=== PATIENT | female | born 1960 | race Hispanic/Latino ===

== ENCOUNTER 2020-05-29 10:07 | Emergency (ER) | payer MEDICARE ==
--- NOTE | 2020-05-29 10:39 | Emergency Department Report ---
ED General Adult HPI - General Chief complaint: Weakness Stated complaint: NOT FEELING GOOD PUI?: No Time Seen by Provider: 05/29/20 10:19 Source: patient, EMS ( EMS documentation not available at time of chart dictation ), RN notes reviewed, old records reviewed Mode of arrival: Stretcher Limitations: Other (Patient is a poor historian and disorganized) - History of Present Illness Initial comments: The patient was evaluated in the emergency department for symptoms described in the history of present illness. He/she was evaluated in the context of the global COVID-19 pandemic, which necessitated consideration that the patient might be at risk for infection with the virus that causes COVID-19. Institutional protocols and algorithms that pertain to the evaluation of patients at risk for COVID-19 are in a state of rapid change based on information released by regulatory bodies including the CDC and federal and state organizations. These policies and algorithms were followed during the patient's care in the emergency department. Please note that these policies, procedures and recommendations changed on a rapid basis. Patient is a 59-year-old female who is reportedly homeless, has a history of psychiatric disease, who was brought to the hospital by emergency medical services. Apparently, the patient was seen standing and/or wandering around a local gas station, And emergency medical services were called for unclear reasons. The patient herself has a complaint of "I do not feel well." She complains of chronic plantar foot pain. She denies headache, neck pain, chest pain, abdominal pain. She is chronic shortness of breath. She is not sure if she is having dysuria. She is not homicidal or suicidal. Patient states that she lives with her mother. She also reports that her mother is her "doctor." She reports I do not know what kind of medicine she practices." Patient is not accompanied by friends or family at this time for additional information or collateral information. Apparently, during her recent hospitalization, patient was transferred to the fifth floor geriatric psychiatry unit after being medically optimized. Patient is not sure what medications she is taking. Patient has difficulty describing the qualitative nature of her symptoms, exacerbating factors, relieving factors, or radiation factors. -: unknown Radiation: other Quality: other Consistency: other Improves with: other Worsens with: other Associated Symptoms: other - Related Data Home Medications Medication Instructions Recorded Confirmed Last Taken Folic Acid [Folvite] 1 mg PO QDAY 05/10/20 05/10/20 Unknown Melatonin [Melatonin 5MG TAB] 5 mg PO HS 05/10/20 05/10/20 Unknown Memantine 5 mg PO QDAY 05/10/20 05/10/20 Unknown Trazodone HCl 50 mg PO HS 05/10/20 05/10/20 Unknown buPROPion XL [Wellbutrin XL] 150 mg PO DAILY 05/10/20 05/10/20 Unknown propranoloL [Inderal] 5 mg PO Q8HR 05/10/20 05/10/20 Unknown Previous Rx's Medication Instructions Recorded Last Taken Type Benztropine [Cogentin] 0.5 mg PO BID #60 tablet 05/17/20 Unknown Rx Melatonin [Melatonin 5MG TAB] 5 mg PO QHS PRN #30 tablet 05/17/20 Unknown Rx Nicotine [Habitrol] 21 mg TD QDAY #30 patch 05/17/20 Unknown Rx OLANzapine [Zyprexa] 20 mg PO QHS #60 tablet 05/17/[address] [[place]] 500 mg PO BID #60 tablet 05/24/20 Unknown Rx Albuterol Sulfate [Proair 90 mcg IH Q4HR PRN #2 aer.[email or web address] 05/29/20 Unknown Rx Respiclick] Nitrofurantoin [place]/M-Cryst 100 mg PO Q12HR #13 capsule 05/29/20 Unknown Rx [Macrobid CAP] Allergies Allergy/AdvReac Type Severity Reaction Status Date / Time No Known Allergies Allergy Verified 05/29/20 10:29 ED Review of Systems ROS: Stated complaint: NOT FEELING GOOD Other details as noted in HPI Constitutional: malaise, weakness. denies: fever Eyes: denies: eye discharge ENT: congestion Respiratory: cough, shortness of breath Cardiovascular: denies: chest pain Gastrointestinal: abdominal pain Musculoskeletal: myalgia Neurological: weakness, confusion Psychiatric: denies: homicidal thoughts, suicidal thoughts ED Past Medical Hx - Past Medical History Hx Hypertension: Yes Hx Congestive Heart Failure: No Hx Diabetes: No Hx Renal Disease: No Hx Arthritis: No Hx Seizures: Yes ("spells" per pt) Hx Psychiatric Treatment: Yes (schizophrenia) Hx Asthma: No Hx COPD: Yes Hx Dementia: No (patient complains of poor memory) - Surgical History Hx Cholecystectomy: No Hx Appendectomy: No - Social History Smoking Status: Current Every Day Smoker Substance Use Type: None - Medications Home Medications: Home Medications Medication Instructions Recorded Confirmed Last Taken Type Folic Acid [Folvite] 1 mg PO QDAY 05/10/20 05/10/20 Unknown History Melatonin [Melatonin 5MG TAB] 5 mg PO HS 05/10/20 05/10/20 Unknown History Memantine 5 mg PO QDAY 05/10/20 05/10/20 Unknown History Trazodone HCl 50 mg PO HS 05/10/20 05/10/20 Unknown History buPROPion XL [Wellbutrin XL] 150 mg PO DAILY 05/10/20 05/10/20 Unknown History propranoloL [Inderal] 5 mg PO Q8HR 05/10/20 05/10/20 Unknown History Benztropine [Cogentin] 0.5 mg PO BID #60 tablet 05/17/20 Unknown Rx Melatonin [Melatonin 5MG TAB] 5 mg PO QHS PRN #30 tablet 05/17/20 Unknown Rx Nicotine [Habitrol] 21 mg TD QDAY #30 patch 05/17/20 Unknown Rx OLANzapine [Zyprexa] 20 mg PO QHS #60 tablet 05/17/[address] [Depakote Dr] 500 mg PO BID #60 tablet 05/24/20 Unknown Rx Albuterol Sulfate [Proair 90 mcg IH Q4HR PRN #2 aer.[email or web address] 05/29/20 Unknown Rx Respiclick] Nitrofurantoin [place]/M-Cryst 100 mg PO Q12HR #13 capsule 05/29/20 Unknown Rx [Macrobid CAP] ED Physical Exam - General Limitations: Other (Patient is disorganized and a poor historian) General appearance: alert, in no apparent distress - Head Head exam: Present: atraumatic, normocephalic - Eye Eye exam: Present: normal appearance, EOMI, other (Visual acuity intact to finger counting and color perception at a close distance). Absent: nystagmus - ENT ENT exam: Present: normal exam, normal orophraynx, mucous membranes moist, normal external ear exam - Neck Neck exam: Present: normal inspection, full ROM. Absent: tenderness, meningismus - Respiratory Respiratory exam: Present: normal lung sounds bilaterally. Absent: respiratory distress, wheezes, rales, rhonchi, stridor, chest wall tenderness - Cardiovascular Cardiovascular Exam: Present: normal rhythm, tachycardia, normal heart sounds. Absent: systolic murmur, diastolic murmur, rubs, gallop - GI/Abdominal GI/Abdominal exam: Present: soft. Absent: distended, tenderness, guarding, rebound, rigid, pulsatile mass - Extremities Exam Extremities exam: Present: normal inspection, full ROM, pedal edema (1+ edema in the bilateral lower extremity), other (2+ pulses noted in the bilateral upper and lower extremities. There is no palpable cord. negative Homans sign. Muscular compartments are soft. The pelvis is stable.). Absent: calf tenderness - Back Exam Back exam: Present: normal inspection, full ROM. Absent: tenderness, CVA tenderness (R), CVA tenderness (L), paraspinal tenderness, vertebral tenderness - Neurological Exam Neurological exam: Present: alert, other (No facial droop. Tongue midline. Extraocular movements intact bilaterally. Facial sensation intact to light touch in V1, V2, V3 distribution bilaterally. 5 and a 5 strength in 4 extremities. Sensation intact to light touch in 4 extremities.) - Psychiatric Psychiatric exam: Present: flat affect. Absent: homicidal ideation, suicidal ideation - Skin Skin exam: Present: warm, dry, intact, normal color. Absent: rash ED Course Vital Signs 05/29/20 05/29/20 05/29/20 10:26 10:31 11:00 Temperature 98.2 F Pulse Rate 107 H 102 H 101 H Respiratory 26 H 32 H 24 Rate Blood Pressure 134/91 128/91 139/89 O2 Sat by Pulse 97 87 Oximetry 05/29/20 05/29/20 11:30 12:30 Temperature Pulse Rate 90 106 H Respiratory 19 25 H Rate Blood Pressure 129/87 130/77 O2 Sat by Pulse 93 86 Oximetry - Reevaluation(s) Reevaluation #1: 05/29/20 11:55 Differential diagnosis, including but not limited to: Disorganized behavior, homelessness, pneumonia, pyuria, urinary tract infection, case management patient Assessment and plan: 59-year-old female, with resolved tachypnea, respiratory rate 18 on my exam, resolving tachycardia, heart rate 101 bpm Laboratory studies are reviewed and appreciated. We will continue the patient's home medications. She does not appear to have an emergent medical condition at this time that requires hospitalization. Because of her disorganized behavior, underlying psychiatric disease, I have requested a psychiatric consultation to determine if patient would benefit from placement into the geriatric psychiatry unit. I will also order a case management consultation. At the moment, patient does not appear to have an emergent medical condition that would preclude discharge with safe outpatient placement, or discharge to the geriatric psychiatry floor, if the psychiatry team opined that it is appr opriate Reevaluation #2: 05/29/20 12:59 The psychiatry team has advised that the patient does not meet criteria or require admission to the geriatric psychiatry unit. They have not recommended a 1013. Patient was evaluated by case management, who offered the patient outpatient resources and placement in a mcc, which the patient is refusing. The patient states that she will leave, and "either walk out or crawl out." Patient does not meet criteria for admission or hospitalization medically at this time. She has been cleared from a psychiatric perspective. ED Medical Decision Making - Lab Data Result diagrams: 05/29/20 10:52 05/29/20 10:52 Vital Signs 05/29/20 05/29/20 05/29/20 10:26 10:31 11:00 Temperature 98.2 F Pulse Rate 107 H 102 H 101 H Respiratory 26 H 32 H 24 Rate Blood Pressure 134/91 128/91 139/89 O2 Sat by Pulse 97 87 Oximetry Lab Results 05/29/20 05/29/20 05/29/20 Range/Units 10:52 10:52 10:52 WBC 6.9 (4.5-11.0) K/mm3 RBC 4.59 (3.65-5.03) M/mm3 Hgb 14.6 H (10.1-14.3) gm/dl Hct 43.9 H (30.3-42.9) % MCV 96 (79-97) fl MCH 32 (28-32) pg MCHC 33 (30-34) % RDW 14.6 (13.2-15.2) % Plt Count 287 (140-440) K/mm3 Sodium 135 L (137-145) mmol/L Potassium 4.0 (3.6-5.0) mmol/L Chloride 94.0 L (98-107) mmol/L Carbon Dioxide 28 (22-30) mmol/L Anion Gap 17 mmol/L BUN 12 (7-17) mg/dL Creatinine 0.3 L (0.6-1.2) mg/dL Estimated GFR > 60 ml/min BUN/Creatinine Ratio 40 % Glucose 92 (65-100) mg/dL Calcium 9.0 (8.4-10.2) mg/dL Magnesium 2.20 (1.7-2.3) mg/dL Total Bilirubin 0.20 (0.1-1.2) mg/dL AST 18 (5-40) units/L ALT 11 (7-56) units/L Alkaline Phosphatase 71 (35-129) units/L Total Creatine Kinase 106 (30-135) units/L Total Protein 6.5 (6.3-8.2) g/dL Albumin 3.6 L (3.9-5) g/dL Albumin/Globulin Ratio 1.2 % TSH 3.490 (0.270-4.200) mlU/mL Urine Color (Yellow) Urine Turbidity (Clear) Urine pH (5.0-7.0) Ur Specific Bucks (1.003-1.030) Urine Protein (Negative) mg/dL Urine Glucose (UA) (Negative) mg/dL Urine Ketones (Negative) mg/dL Urine Blood (Negative) Urine Nitrite (Negative) Urine Bilirubin (Negative) Urine Urobilinogen (<2.0) mg/dL Ur Leukocyte Esterase (Negative) Urine WBC (Auto) (0.0-6.0) /HPF Urine RBC (Auto) (0.0-6.0) /HPF U Epithel Cells (Auto) (0-13.0) /HPF Urine Mucus /HPF Salicylates (2.8-20.0) mg/dL Urine Opiates Screen Urine Methadone Screen Acetaminophen (10.0-30.0) ug/mL Ur Barbiturates Screen Valproic Acid (50-100) ug/mL Ur Phencyclidine Scrn Ur Amphetamines Screen U Benzodiazepines Scrn Urine Cocaine Screen U Marijuana (THC) Screen Drugs of Abuse Note Plasma/Serum Alcohol (0-0.07) % 05/29/20 05/29/20 05/29/20 Range/Units 10:52 10:52 10:52 WBC (4.5-11.0) K/mm3 RBC (3.65-5.03) M/mm3 Hgb (10.1-14.3) gm/dl Hct (30.3-42.9) % MCV (79-97) fl MCH (28-32) pg MCHC (30-34) % RDW (13.2-15.2) % Plt Count (140-440) K/mm3 Sodium (137-145) mmol/L Potassium (3.6-5.0) mmol/L Chloride (98-107) mmol/L Carbon Dioxide (22-30) mmol/L Anion Gap mmol/L BUN (7-17) mg/dL Creatinine (0.6-1.2) mg/dL Estimated GFR ml/min BUN/Creatinine Ratio % Glucose (65-100) mg/dL Calcium (8.4-10.2) mg/dL Magnesium (1.7-2.3) mg/dL Total Bilirubin (0.1-1.2) mg/dL AST (5-40) units/L ALT (7-56) units/L Alkaline Phosphatase (35-129) units/L Total Creatine Kinase (30-135) units/L Total Protein (6.3-8.2) g/dL Albumin (3.9-5) g/dL Albumin/Globulin Ratio % TSH (0.270-4.200) mlU/mL Urine Color (Yellow) Urine Turbidity (Clear) Urine pH (5.0-7.0) Ur Specific Bucks (1.003-1.030) Urine Protein (Negative) mg/dL Urine Glucose (UA) (Negative) mg/dL Urine Ketones (Negative) mg/dL Urine Blood (Negative) Urine Nitrite (Negative) Urine Bilirubin (Negative) Urine Urobilinogen (<2.0) mg/dL Ur Leukocyte Esterase (Negative) Urine WBC (Auto) (0.0-6.0) /HPF Urine RBC (Auto) (0.0-6.0) /HPF U Epithel Cells (Auto) (0-13.0) /HPF Urine Mucus /HPF Salicylates < 0.3 L (2.8-20.0) mg/dL Urine Opiates Screen Urine Methadone Screen Acetaminophen 5.0 L (10.0-30.0) ug/mL Ur Barbiturates Screen Valproic Acid 3.2 L (50-100) ug/mL Ur Phencyclidine Scrn Ur Amphetamines Screen U Benzodiazepines Scrn Urine Cocaine Screen U Marijuana (THC) Screen Drugs of Abuse Note Plasma/Serum Alcohol < 0.01 (0-0.07) % 05/29/20 05/29/20 Range/Units Unknown Unknown WBC (4.5-11.0) K/mm3 RBC (3.65-5.03) M/mm3 Hgb (10.1-14.3) gm/dl Hct (30.3-42.9) % MCV (79-97) fl MCH (28-32) pg MCHC (30-34) % RDW (13.2-15.2) % Plt Count (140-440) K/mm3 Sodium (137-145) mmol/L Potassium (3.6-5.0) mmol/L Chloride (98-107) mmol/L Carbon Dioxide (22-30) mmol/L Anion Gap mmol/L BUN (7-17) mg/dL Creatinine (0.6-1.2) mg/dL Estimated GFR ml/min BUN/Creatinine Ratio % Glucose (65-100) mg/dL Calcium (8.4-10.2) mg/dL Magnesium (1.7-2.3) mg/dL Total Bilirubin (0.1-1.2) mg/dL AST (5-40) units/L ALT (7-56) units/L Alkaline Phosphatase (35-129) units/L Total Creatine Kinase (30-135) units/L Total Protein (6.3-8.2) g/dL Albumin (3.9-5) g/dL Albumin/Globulin Ratio % TSH (0.270-4.200) mlU/mL Urine Color Yellow (Yellow) Urine Turbidity Clear (Clear) Urine pH 6.0 (5.0-7.0) Ur Specific Bucks 1.018 (1.003-1.030) Urine Protein <15 mg/dl (Negative) mg/dL Urine Glucose (UA) Neg (Negative) mg/dL Urine Ketones Tr (Negative) mg/dL Urine Blood Sm (Negative) Urine Nitrite Neg (Negative) Urine Bilirubin Neg (Negative) Urine Urobilinogen 2.0 (<2.0) mg/dL Ur Leukocyte Esterase Sm (Negative) Urine WBC (Auto) 7.0 H (0.0-6.0) /HPF Urine RBC (Auto) 4.0 (0.0-6.0) /HPF U Epithel Cells (Auto) 6.0 (0-13.0) /HPF Urine Mucus Few /HPF Salicylates (2.8-20.0) mg/dL Urine Opiates Screen Negative Urine Methadone Screen Negative Acetaminophen (10.0-30.0) ug/mL Ur Barbiturates Screen Negative Valproic Acid (50-100) ug/mL Ur Phencyclidine Scrn Negative Ur Amphetamines Screen Negative U Benzodiazepines Scrn Negative Urine Cocaine Screen Negative U Marijuana (THC) Screen Negative Drugs of Abuse Note Disclamer Plasma/Serum Alcohol (0-0.07) % - EKG Data -: EKG Interpreted by Fl EKG shows normal: sinus rhythm Rate: normal - EKG Data 05/29/20 12:01 Sinus rhythm, tachycardia, 101 bpm, normal axis, QTC 454 ms, low voltage, poor R wave progression, abnormal EKG, the EKG is not a STEMI. - Radiology Data Radiology results: report reviewed, image reviewed Print Report Referring Physician: MICHI JONES Patient Name: DANDRE DHALIWAL Date of : 1960 Sex: Female Report Date: 2020-05-29 Report Status: Finalized Findings [facility] [address] [place] [address] XRay Report Signed Patient: DANDRE DHALIWAL MR#: [id number] : 1960 Acct:[id number] Age/Sex: 59 / F ADM Date: 05/29/20 Loc: ED Attending Dr: Ordering Physician: MICHI JONES MD Date of Service: 05/29/20 Procedure(s): XR chest 1V ap Accession Number(s): [id number] cc: MICHI JONES MD Fluoro Time In Minutes: CHEST 1 VIEW 1050 INDICATION / CLINICAL INFORMATION: dyspnea COMPARISON: 05/18/2020 FINDINGS: SUPPORT DEVICES: None HEART / MEDIASTINUM: No significant abnormality. LUNGS / PLEURA: Mild chronic changes are again noted. No definite acute infiltrates are seen. No pneumothorax. ADDITIONAL FINDINGS: No significant additional findings. IMPRESSION: No significant acute abnormality Signer Name: Huan Hurtado MD Signed: 05/29/2020 10:59 AM Workstation Name: [id number] Transcribed By: GJ Dictated By: Huan Hurtado MD Electronically Authenticated By: Huan Hurtado MD Signed Date/Time: 05/29/20 1059 DD/ 1058 TD/TT: Critical care attestation.: If time is entered above; I have spent that time in minutes in the direct care of this critically ill patient, excluding procedure time. ED Disposition Clinical Impression: Case management patient, Disorganized behavior, General medical exam, Pyuria Schizophrenia Qualifiers: Schizophrenia type: unspecified Qualified Code(s): F20.9 - Schizophrenia, unspecified Disposition: DC-01 TO HOME OR SELFCARE Is pt being admited?: No Does the pt Need Aspirin: No Condition: Stable Additional Instructions: Continue current outpatient medications. Avoid consumption of alcohol and recreational drugs. Take the albuterol as needed, and Macrobid antibiotic as directed. Cultures were sent today, and results will be available in the next 3 to 5 days. Please follow-up with your primary care doctor within the next week. Please return to the emergency room right away with fever, chills, lethargy, irritability, projectile vomiting, change in mental status, confusion, inability to tolerate liquid feeds, homicidality, suicidality, or new, worsened or diffe rent symptoms not present on the initial emergency room evaluation OUTPATIENT MENTAL HEALTH RESOURCES [facility], [facility] Rangel Heredia MD: [address] [facility] [address] [place] [address] [place] [address] [employer] [employer] Psychotherapy: [employer] [facility] [address] [place] [address] [place] [address] [phone] [facility]: [facility] Healthcare: [address] [facility] [place] [address] [facility] [id number] [employer] [facility]: Nazario Paul MD: [address] [facility] [address] [facility] [id number] [facility]: [address] [place] [address] [phone] [place] CRISIS AND ACCESS LINE: Prescriptions: Nitrofurantoin [place]/M-Cryst [Macrobid CAP] 100 mg PO Q12HR #13 capsule Albuterol Sulfate [Proair Respiclick] 90 mcg IH Q4HR PRN #2 [email or web address] PRN Reason: Wheezing Referrals: [facility] [Provider Group] - 3-5 Days
[2020-05-29 10:57] LABS: Amphetamine Screen,Urine Negative; Benzodiazepines Screen,Urine Negative; Cannabinoid Screen,Urine Negative; Cocaine Screen,Urine Negative; Methadone Screen,Urine Negative; Opiate Screen,Urine Negative
[2020-05-29 10:59] LABS: Bilirubin,Urine NEG (Negative); Blood,Urine SM (Negative); Color,Urine Yellow (Yellow); Mucus,Urine FEW /HPF; Protein,Urine <15 mg/dL mg/dL (Negative)
--- NOTE | 2020-05-29 11:03 | XRay Report ---
CHEST 1 VIEW 1050 INDICATION / CLINICAL INFORMATION: dyspnea COMPARISON: 05/18/2020 FINDINGS: SUPPORT DEVICES: None HEART / MEDIASTINUM: No significant abnormality. LUNGS / PLEURA: Mild chronic changes are again noted. No definite acute infiltrates are seen. No pneu mothorax. ADDITIONAL FINDINGS: No significant additional findings. IMPRESSION: No significant acute abnormality Signer Name: Huan Hurtado MD Signed: 05/29/2020 10:59 AM Workstation Name: [id number]
[2020-05-29 11:17] LABS: Hematocrit 43.9 % (30.3-42.9); Hemoglobin 14.6 gm/dl (10.1-14.3); Mean Corpuscular HGB Conc 33 % (30-34); Mean Corpuscular Volume 96 fl (79-97); Platelet Count 287 K/mm3 (140-440); Red Blood Count 4.59 M/mm3 (3.65-5.03); Red Cell Distribution Width 14.6 % (13.2-15.2)
[2020-05-29 11:31] LABS: Alanine Aminotransferase 11 units/L (7-56); Albumin 3.6 g/dL (3.9-5); Blood Urea Nitrogen 12 mg/dL (7-17); Hemolysis Index 27
[2020-05-29 11:32] LABS: BUN/Creatinine Ratio 40
[2020-05-29] MEDS ORDERED: NITROFURANTOIN MONOHYD/M-CRYST 100 MG CAP PO SCH (12:00)
[2020-05-29] MEDS ORDERED: PROPRANOLOL 10 MG TAB PO SCH (14:00)
[2020-05-29 15:09] VITALS: BP 130/77
[2020-05-29] MEDS ORDERED: DIVALPROEX DR 250 MG TAB PO SCH (22:00)
[2020-05-30] MEDS ORDERED: MEMANTINE 5 MG TAB PO SCH (10:00)
[2020-05-30] MEDS ORDERED: FOLIC ACID 1 MG TAB PO SCH (10:00)
[2020-05-30] MEDS ORDERED: NICOTINE 21 MG/24 HR PATCH TD SCH (10:00)
== END 2020-05-29 13:27 | disposition home or self-care (01) ==
LOC: ED 10:07
DX: F20.89 Other schizophrenia (principal); R82.81 Pyuria; Z00.00 Encounter for general adult medical examination without abnormal findings
CPT/HCPCS: 36415; 71045; 80053; 80164; 80307; 80320; 81001; 82550; 83735; 84443; 85027; 93005; G0480